=== PATIENT | male | born 1970 | race Caucasian/White ===

== ENCOUNTER 2016-09-14 03:46 | Emergency (ER) | payer MEDICAID ==
[~2016-09-14] VITALS: Ht 170.2 cm; Wt 122.5 kg
[2016-09-14 03:53] VITALS: BP 137/89
--- NOTE | 2016-09-14 05:30 | NUR ---
PATIENT AMBULATED TO ER BED 4.
--- NOTE | 2016-09-14 05:37 | NUR ---
46Y/M PT. PRESENTS TO ED WITH C/O CUT WOUND TO LT. WRIST X 8 HRS. PT. STATES GOT CUT BY WIL [employer] WHILE WORKING, LACERATION TO LT. WRIST, NO ACTIVE BLEEDING. NO MEDICAL HX.; SKIN IS PINK/WARM/DRY, LT. WRIST CUT WOUND, NO ACTIVE BLEEDING; AAOX4 WITH EVEN AND STEADY GAIT; LUNGS CLEAR BL; HR EVEN AND REGULAR; PT DENIES ANY FEVER, CP, SOB, OR COUGH AT THIS TIME; PATIENT STATES PAIN OF 3/10 AT THIS TIME; VSS; PATIENT POSITIONED FOR COMFORT; HOB ELEVATED; BEDRAILS UP X2; BED DOWN. ER MD MADE AWARE OF PT STATUS.
--- NOTE | 2016-09-14 05:50 | NUR ---
PATIENT BEING EVALUATED BY DR. CRUZ.
[2016-09-14] MEDS ORDERED: LIDOCAINE/EPI 1% 1:100000 20 ML VIAL INJ ONE ×2 (07:00→07:15)
--- NOTE | 2016-09-14 07:03 | NUR ---
PT RESTING ON BED, AWATING FOR TX ON LACERATION. BLEEDING UNDER CONTROL, NO S/S OF DSITRESS NOTED AT THE MOMENT.
--- NOTE | 2016-09-14 07:14 | NUR ---
Pt report given to ARMANDO CHERY. Transfer of care at this time.
--- NOTE | 2016-09-14 07:22 | NUR ---
Dr. Segura at bedside for laceration repair.
[2016-09-14] MEDS ORDERED: BACITRACIN OINT 500 UNITS/GM PKT TP ONE (07:48)
[2016-09-14 08:36] VITALS: BP 133/87
== END 2016-09-14 08:36 | disposition home or self-care (01) ==
LOC: MED 03:46
DX: S61.412A Laceration without foreign body of left hand, initial encounter (principal); Z88.1 Allergy status to other antibiotic agents; W31.2XXA Contact with powered woodworking and forming machines, initial encounter; Y93.89 Activity, other specified; Y92.89 Other specified places as the place of occurrence of the external cause; Y99.8 Other external cause status
CPT/HCPCS: 12042; 99284; J2001